=== PATIENT | male | born 1975 | race Caucasian/White ===

== ENCOUNTER → 2018-09-11 | Outpatient (CLI) | END | disposition home or self-care (01) ==

== ENCOUNTER → 2018-09-14 | Outpatient (CLI) | END | disposition home or self-care (01) ==

== ENCOUNTER 2018-09-15 11:30 | Emergency (ER) | END 2018-09-15 13:49 | disposition home or self-care (01) ==

== ENCOUNTER 2018-11-07 15:47 | Emergency (ER) | payer BC, OTHER ==
[~2018-11-07] VITALS: Ht 180.3 cm; Wt 115.5 kg
[~2018-11-07 15:47] MED LIST: IBUP800T48 PO; LAMI1TAB PO; OLME20TA20 PO
[2018-11-07 15:52] VITALS: BP 163/99; PULSE 87; RESP 14; Ht 180.3 cm; Wt 115.5 kg
[2018-11-07] MEDS ORDERED: DIPHTH/TET/ACEL PERTUSS (ADULT) 0.5 ML VIAL IM* ONE (16:30)
[2018-11-07] MEDS ORDERED: OLME20TA20 PO (16:45)
[2018-11-07] MEDS ORDERED: LAMI1TAB PO (16:45)
--- NOTE | 2018-11-07 18:02 | ERD ---
ER Documentation Chief Complaint Chief Complaint NEEDLE STICK TODAY; CHECK PER PROTOCOL HPI 42-year-old male presenting with needlestick injury to left index finger. Patient is right-hand dominant. 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 Patient states he is unsure of patient's history states his last tetanus shot was in the last 5 years. Denies [facility]. Surgical history is right meniscus surgery. Social history denies ROS All systems reviewed and are negative except as per history of present illness. Medications Home Meds Active Scripts Lamivudine-Zidovudine* (Lamivudine-Zidovudine*) 150-300 Mg Tablet, 1 TAB PO BID for 30 Days, #60 TAB Prov:REYNA KIRKPATRICK PA-C 11/07/18 Olmesartan Medoxomil (Benicar) 20 Mg Tablet, 20 MG PO DAILY, #30 TAB Prov:REYNA KIRKPATRICK PA-C 11/07/18 Lamivudine-Zidovudine* (Lamivudine-Zidovudine*) 150-300 Mg Tablet, 1 TAB PO BID for 30 Days, TAB Prov:MONICA SHELTON 06/21/17 Olmesartan Medoxomil (Benicar) 20 Mg Tablet, 20 MG PO DAILY, #30 TAB Prov:MONICA SHELTON 03/03/16 Ibuprofen* (Motrin*) 800 Mg Tab, 800 MG PO Q8, #30 TAB Prov:LIZETH AGUILLON NP 02/07/16 Ibuprofen* (Motrin*) 800 Mg Tab, 800 MG PO Q6H PRN for PAIN AND OR ELEVATED TEMP, #30 TAB Prov:DEE WALKER 05/16/15 Allergies Allergies: Coded Allergies: No Known Allergy (Unverified , 09/15/18) PMhx/Soc Medical and Surgical Hx: pt denies Medical Hx, pt denies Surgical Hx History of Surgery: No Anesthesia Reaction: No Hx Neurological Disorder: No Hx Respiratory Disorders: No Hx Cardiac Disorders: Yes (HTN) Hx Psychiatric Problems: No Hx Miscellaneous Medical Probl: No Hx Alcohol Use: No Hx Substance Use: No Hx Tobacco Use: No Smoking Status: Never smoker FmHx Family History: No diabetes, No coronary disease, No other Physical Exam Vitals Vital Signs Date Temp Pulse Resp B/P (MAP) Pulse Ox O2 O2 Flow FiO2 Time Delivery Rate 11/07/18 98.7 87 14 163/99 98 15:52 (120) Physical Exam GENERAL: The patient is well-appearing, well-nourished, in no acute distress HEENT: Atraumatic. Conjunctivae are pink. Pupils equal, round, and reactive to light. There is no scleral icterus. Tympanic membranes clear bilaterally. Oropharynx clear. CHEST: Clear to auscultation bilaterally. There are no rales, wheezes or rhonchi. HEART: Regular rate and rhythm. No murmurs, clicks, rubs or gallops. No S3 or S4. SKIN: Puncture wound to left index finger. No surrounding erythema or fluctuance. Result Diagram: 11/07/18 1610 Results 24 hrs Laboratory Tests Test 11/07/18 16:10 White Blood Count 7.4 10^3/ul Red Blood Count 5.10 10^6/ul Hemoglobin 15.5 g/dl Hematocrit 44.4 % Mean Corpuscular Volume 87.1 fl Mean Corpuscular Hemoglobin 30.4 pg Mean Corpuscular Hemoglobin Concent 34.9 g/dl Red Cell Distribution Width 12.5 % Platelet Count 292 10^3/UL Mean Platelet Volume 10.0 fl Immature Granulocytes % 0.400 % Neutrophils % 56.0 % Lymphocytes % 39.0 % Monocytes % 3.0 % Eosinophils % 1.3 % Basophils % 0.3 % Nucleated Red Blood Cells % 0.0 /100WBC Immature Granulocytes # 0.030 10^3/ul Neutrophils # 4.2 10^3/ul Lymphocytes # 2.9 10^3/ul Monocytes # 0.2 10^3/ul Eosinophils # 0.1 10^3/ul Basophils # 0.0 10^3/ul Nucleated Red Blood Cells # 0.0 10^3/ul Total Bilirubin 0.1 mg/dl Direct Bilirubin 0.00 mg/dl Indirect Bilirubin 0.1 mg/dl Aspartate Amino Transf (AST/SGOT) 31 IU/L Alanine Aminotransferase (ALT/SGPT) 42 IU/L Alkaline Phosphatase 60 IU/L Total Protein 7.4 g/dl Albumin 4.6 g/dl Hepatitis B Surface Antigen NEGATIVE Hepatitis C Antibody NEGATIVE HIV (1&2) Antibody NEGATIVE Current Medications Medications Dose Sig/Cari Start Time Status Last (Trade) Ordered Route PRN Stop Time Admin Dose Reason Admin Diphtheria/ 0.5 ml ONCE ONCE 11/07/18 DC Tetanus/Acell IM* 16:30 11/07/18 Pertussis 16:31 (Adacel) Procedures/MDM ER course: 42-year-old male presenting for needlestick injury. Blood work drawn in ED. MDM: 42 yr old male presenting for a needlestick injury. Patient had blood work drawn in the ED. He will be discharged with antiviral medications. Patient is recommended to return within 1, 3 and 6 months for re-draw for HIV. Patient will attempt to obtain blood work from the patient. All questions answered discharge Departure Diagnosis: Primary Impression: Needlestick injury accident Condition: Stable Patient Instructions: Standard Precautions: [place] and [place] Referrals: NOELLE FAIR (PCP) Additional Instructions: FOLLOW UP WITH YOUR PRIMARY CARE PHYSICIAN TOMORROW.Return to this facility if you are not improving as expected. REYNA KIRKPATRICK PA-C Nov 07, 2018 18:02
== END 2018-11-07 21:40 | disposition home or self-care (01) ==
LOC: FTE 15:47
DX: S61.231A Puncture wound without foreign body of left index finger without damage to nail, initial encounter (principal); I10 Essential (primary) hypertension; W46.0XXA Contact with hypodermic needle, initial encounter; Y92.9 Unspecified place or not applicable
CPT/HCPCS: 80076; 85025; 86703; 86706; 86803; 87340; 99283